=== PATIENT | female | born 1970 | race Caucasian/White ===

== ENCOUNTER 2016-07-25 15:36 | Emergency (ER) | payer BC ==
--- NOTE | 2016-07-25 16:35 | UC ---
Abdominal Pain Female HPI - History of Current Complaint Chief Complaint: UCAbdominalPain Stated Complaint: ABDOMINAL PAIN Time Seen by Provider: 07/25/16 16:27 Hx Obtained From: Patient Hx Last Menstrual Period: 07/16/16 ?: No Onset/Duration: Sudden Onset - right after dinner. LLQ, radiating into the upper abdomen., Lasting Days - 1, Worse Since - today. Timing: Constant Severity Initially: Moderate Severity Currently: Severe Location: Discrete At: LLQ Radiates: Yes Radiates to: Other - LUQ Character: Aching, Sharp Aggravating Factor(s): Movement Alleviating Factor(s): Position Associated Signs and Symptoms: Positive: Diaphoresis, Nausea, Diarrhea. Negative: Vomiting - but felt nauseated after eating - Risk Factors Ectopic Risk Factor: Maternal Age ^ 30 Ovarian Torsion Risk Factor: Reproductive Age Allergies/Adverse Reactions: Allergies Allergy/AdvReac Type Severity Reaction Status Date / Time Cefaclor [From Ceclor] Allergy Swelling Verified 07/25/16 15:45 Methocarbamol [From Robaxin] Allergy Difficulty Verified 07/25/16 15:45 Breathing Home Medications: Home Medications Desogestrel & Ethinyl Estradio [[place] 0.15-30 mg-Mcg] 1 tab PO DAILY [History Confirmed 07/25/16] Lactobacillus [Probiotic] 1 cap PO PRN 07/25/16 [History] Lisinopril [Zestril 20 MG-] 1 tab PO DAILY 07/25/16 [History Confirmed 07/25/16] PMH/Surg Hx/FS Hx/Imm Hx Cardiovascular History Of: Reports: Hypertension - Surgical History Surgical History: Yes Surgery Procedure, Year, and Place: Lithotripsy x 2. D & C 05/2016 - Family History Known Family History: Positive: Cardiac Disease, Hypertension - Social History Occupation: Employed Full-time Lives: With Family Alcohol Use: Occasionally Substance Use Type: None Smoking Status (MU): Former Smoker Review of Systems Constitutional: Chills, Fatigue Gastrointestinal: Abdominal Pain, Diarrhea All Other Systems Reviewed And Are Negative: Yes Physical Exam Triage Information Reviewed: Yes Appearance: No Pain Distress - at rest., Ill-Appearing - mild, Obese Vital Signs: Initial Vital Signs Temp 98.8 F 07/25/16 15:48 Pulse 83 07/25/16 15:48 Resp 16 07/25/16 15:48 BP 155/92 07/25/16 15:48 Pulse Ox 99 07/25/16 15:48 Vital Signs Reviewed: Yes Eyes: Positive: Conjunctiva Clear ENT: Positive: Pharynx normal, TMs normal Neck exam: Normal Respiratory Exam: Normal Cardiovascular Exam: Normal Abdomen Description: Positive: No Organomegaly, Soft. Negative: Nontender - Tender LLQ to palpation and percussion., CVA Tenderness (R), CVA Tenderness (L) , McBurney's Point Tenderness, Peritoneal Signs Bowel Sounds: Positive: Present Musculoskeletal Exam: Normal Neurological Exam: Normal Psychological Exam: Normal Skin: Positive: significant lesion(s) - Hemangioma on right side of the face. Abd Pain Female Course/Dx - Differential Dx/Diagnosis Differential Diagnosis: Appendicitis, Bowel Obstruction, Diverticulitis Provider Diagnoses: Acute diverticulitis Discharge - Discharge Plan Condition: Stable Disposition: HOME Prescriptions: Metronidazole [Flagyl 500 MG TAB] 500 mg PO TID #30 tab Sulfamethox/Trimethoprim DS* [Bactrim DS 800/160 TAB*] 1 tab PO BID #20 tab Patient Education Materials: Diverticulitis (ED), Sulfamethoxazole/ Trimethoprim (By mouth), Metronidazole (By mouth) Referrals: Brenda Prasad [Primary Care Provider] - 2 Days (recheck BP and abdomen.)
[2016-07-25 17:02] VITALS: BP 148/96
== END 2016-07-25 17:05 | disposition home or self-care (01) ==
LOC: UCCORT 15:36
DX: K57.92 Diverticulitis of intestine, part unspecified, without perforation or abscess without bleeding (principal); I10 Essential (primary) hypertension; Z87.891 Personal history of nicotine dependence
CPT/HCPCS: 99212; G0463

== ENCOUNTER 2018-03-07 19:19 | Emergency (ER) | payer BC ==
[2018-03-07 20:19] VITALS: BP 154/100
--- NOTE | 2018-03-07 21:15 | UC ---
UC General HPI - HPI Summary HPI Summary: pt is c/o "diverticulitis". she describes this as an "achy-spasm" to the left side of her abdomen. It began after she ate some popcorn yesterday. She states she has had the same 3x's in the past. The diagnosis was first made and confirmed by CT in 2017. She states cipro and flagyl work well for her. She denies any associated fever, vomiting and diarrhea. - History of Current Complaint Chief Complaint: UCAbdominalPain Stated Complaint: DIVERTICULITIS FLAIR UP Time Seen by Provider: 03/07/18 20:23 Hx Obtained From: Patient Hx Last Menstrual Period: uterine ablation Onset/Duration: Gradual Onset Timing: Constant Pain Intensity: 6 Associated Signs & Symptoms: Positive: Abdominal Pain. Negative: Diarrhea, Fever, Vomiting - Allergy/Home Medications Allergies/Adverse Reactions: Allergies Allergy/AdvReac Type Severity Reaction Status Date / Time cefaclor [From Ceclor] Allergy Severe swelling Verified 03/07/18 20:20 "entire body" methocarbamol [From Robaxin] Allergy Severe respiratory Verified 03/07/18 20:20 Sulfa (Sulfonamide Allergy Intermediate Hives Verified 03/07/18 20:20 Antibiotics) Home Medications: Home Medications Lisinopril/HCTZ 02/24.5(NF) [Zestoretic 02/24.5(NF)] 1 tab PO DAILY 03/07/18 [ History Confirmed 03/07/18] PMH/Surg Hx/FS Hx/Imm Hx - Additional Past Medical History Additional PMH: Diverticulitis Cardiovascular History: Hypertension - not currently tx but is being followed GI/ History: Diverticulitis - Surgical History Surgical History: Yes Surgery Procedure, Year, and Place: Lithotripsy x 2. uterine ablation 2017 - Family History Known Family History: Positive: Cardiac Disease, Hypertension - Social History Lives: With Family Alcohol Use: Rare Substance Use Type: None Smoking Status (MU): Former Smoker - Immunization History Vaccination Up to Date: Yes Review of Systems Constitutional: Negative Skin: Negative Eyes: Negative ENT: Negative Respiratory: Negative Cardiovascular: Negative Gastrointestinal: Abdominal Pain Genitourinary: Negative Motor: Negative Neurovascular: Negative Musculoskeletal: Negative Neurological: Negative Psychological: Negative Is Patient Immunocompromised?: No All Other Systems Reviewed And Are Negative: Yes Physical Exam Triage Information Reviewed: Yes Appearance: Well-Appearing Vital Signs: Initial Vital Signs Temp 98 F 03/07/18 20:05 Pulse 91 03/07/18 20:05 Resp 17 03/07/18 20:05 BP 154/100 03/07/18 20:05 Pulse Ox 99 03/07/18 20:05 Vital Signs Reviewed: Yes Eyes: Positive: Conjunctiva Clear ENT: Positive: Pharynx normal, TMs normal. Negative: Nasal congestion, Nasal drainage Neck: Positive: Supple, Nontender, No Lymphadenopathy Respiratory: Positive: Lungs clear, Normal breath sounds Cardiovascular: Positive: RRR, No Murmur Abdomen Description: Positive: Other: - + BS. soft. mild tenderness L side of abdomen but no masses, no HSM, no guarding or rebound tenderness. No CVA tenderness. No peritoneal signs with pt jumping at the bedside. Musculoskeletal: Positive: ROM Intact Neurological: Positive: Alert Psychological: Positive: Age Appropriate Behavior Skin Exam: Normal Diagnostics - Laboratory Diagnostic Studies Completed/Ordered: pt refused testing citing with vasectomy and she has a uterine ablation. Course/Dx - Course Course Of Treatment: known hx htn, not currently tx due to drug side effects but is being monitored thus will have it rechecked on f/u. non toxic and no acute abdomen. hx diverticulitis x 3 that present the same thus will tx presumptively. pt agrees to go to ER for any changes or worsening as well as close f/u for recheck in 3 days. pt refused testing. - Differential Dx - Multi-Symptom Provider Diagnoses: Diverticulitis Discharge - Sign-Out/Discharge Documenting (check all that apply): Patient Departure All imaging exams completed and their final reports reviewed: No Studies - Discharge Plan Condition: Stable Disposition: HOME Prescriptions: Ciprofloxacin TAB* [Cipro 500 MG TAB*] 500 mg PO BID 7 Days #14 tab metroNIDAZOLE [Flagyl 500 MG TAB] 500 mg PO TID 7 Days #21 tab Patient Education Materials: Diverticulitis (ED) Referrals: Balaji Crespo MD [Medical Doctor] - 3 Days Additional Instructions: GO TO THE ER IMMEDIATELY FOR ANY CHANGES OR WORSENING. - Billing Disposition and Condition Condition: STABLE Disposition: Home
[2018-03-07] MEDS ORDERED: Ciprofloxacin TAB* 500 MG PO ONE (21:21)
[2018-03-07] MEDS ORDERED: metroNIDAZOLE TAB* 250 MG PO ONE (21:22)
== END 2018-03-07 21:31 | disposition home or self-care (01) ==
LOC: UCCORT 19:19
DX: K57.92 Diverticulitis of intestine, part unspecified, without perforation or abscess without bleeding (principal); I10 Essential (primary) hypertension; Z88.1 Allergy status to other antibiotic agents; Z88.8 Allergy status to other drugs, medicaments and biological substances; Z88.2 Allergy status to sulfonamides; Z79.899 Other long term (current) drug therapy; Z87.891 Personal history of nicotine dependence
CPT/HCPCS: 99212; A9270-GY; G0463